=== PATIENT | male | born 1945 | race African-American/Black ===

== ENCOUNTER 2017-03-14 12:27 | Emergency (ER) | payer OTHER, MEDICAID ==
[~2017-03-14] VITALS: Ht 182.9 cm; Wt 86.0 kg
[2017-03-14 12:49] VITALS: BP 115/81
== END 2017-03-14 19:57 | disposition left against medical advice (07) ==
LOC: ER 12:27
DX: L60.0 Ingrowing nail (principal); Z53.21 Procedure and treatment not carried out due to patient leaving prior to being seen by health care provider

== ENCOUNTER 2017-09-28 12:15 | Emergency (ER) | payer OTHER, MEDICAID ==
[~2017-09-28] VITALS: Ht 182.9 cm; Wt 85.0 kg
[2017-09-28 13:14] VITALS: BP 142/97
[2017-09-28] MEDS ORDERED: POVIDONE-IODINE 10% TOPICAL SOLN 240ML TOP ONE (13:15)
[2017-09-28] MEDS ORDERED: LIDOCAINE HCL 1% 20ML VIAL (Pyxis) INJ INFIL ONE (13:15)
[2017-09-28] MEDS ORDERED: TETANUS, DIPHTHERIA, PERTUSSIS VAC/PF 0.5ML (>7YR OLD) IM ONE (13:15)
== END 2017-09-28 15:15 | disposition home or self-care (01) ==
LOC: ER 14:41
DX: S61.411A Laceration without foreign body of right hand, initial encounter (principal); I10 Essential (primary) hypertension; Y08.89XA Assault by other specified means, initial encounter; Y93.89 Activity, other specified; Y92.89 Other specified places as the place of occurrence of the external cause; Y99.8 Other external cause status
CPT/HCPCS: 90471; 90715; 99283; A4246; J3490

== ENCOUNTER 2017-09-30 09:43 | Emergency (ER) | payer OTHER, MEDICAID ==
[~2017-09-30] VITALS: Ht 182.9 cm; Wt 86.0 kg
[2017-09-30 09:45] VITALS: BP 119/86
== END 2017-09-30 12:25 | disposition home or self-care (01) ==
LOC: ER 09:45
DX: Z48.00 Encounter for change or removal of nonsurgical wound dressing (principal); I10 Essential (primary) hypertension
CPT/HCPCS: 99281

== ENCOUNTER 2017-12-20 03:19 | Emergency (ER) | payer MEDICARE, MEDICAID ==
[~2017-12-20] VITALS: Ht 185.4 cm; Wt 84.0 kg
[2017-12-20] MEDS ORDERED: IBUPROFEN 400MG TABLET PO ONE (05:30)
[2017-12-20] MEDS ORDERED: ACETAMINOPHEN 325MG TABLET PO ONE (05:30)
[2017-12-20 08:51] VITALS: BP 124/79
== END 2017-12-20 08:57 | disposition home or self-care (01) ==
LOC: ER 04:13
DX: S52.121A Displaced fracture of head of right radius, initial encounter for closed fracture (principal); J45.909 Unspecified asthma, uncomplicated; W19.XXXA Unspecified fall, initial encounter; Y92.9 Unspecified place or not applicable
CPT/HCPCS: 73080; 73110; 99284

== ENCOUNTER 2018-09-14 05:07 | Emergency (ER) | payer MEDICARE, MEDICAID ==
[~2018-09-14] VITALS: Ht 185.4 cm; Wt 84.0 kg
[2018-09-14 05:09] VITALS: BP 128/81
== END 2018-09-14 07:30 | disposition home or self-care (01) ==
LOC: ER 07:03
DX: S61.233A Puncture wound without foreign body of left middle finger without damage to nail, initial encounter (principal); L03.012 Cellulitis of left finger; J45.909 Unspecified asthma, uncomplicated; X58.XXXA Exposure to other specified factors, initial encounter; Y93.89 Activity, other specified; Y92.89 Other specified places as the place of occurrence of the external cause; Y99.8 Other external cause status
CPT/HCPCS: 99283

== ENCOUNTER 2018-09-16 04:55 | Emergency (ER) | payer MEDICARE, MEDICAID ==
[~2018-09-16] VITALS: Ht 185.4 cm; Wt 84.0 kg
[2018-09-16 05:16] VITALS: BP 135/88
[2018-09-16] MEDS ORDERED: LIDOCAINE HCL 1% 20ML VIAL (Pyxis) INJ INFIL ONE (09:00)
[2018-09-16] MEDS ORDERED: BACITRACIN ZINC OINT UDPKT TOP ONE (10:30)
== END 2018-09-16 10:46 | disposition home or self-care (01) ==
LOC: ER 10:38
DX: L02.512 Cutaneous abscess of left hand (principal); J45.909 Unspecified asthma, uncomplicated
CPT/HCPCS: 10060; 73130; 99283; J3490

== ENCOUNTER 2018-11-02 17:22 | Inpatient (IN) | payer MEDICARE, MEDICAID ==
[~2018-11-02] VITALS: Ht 185.4 cm; Wt 85.7 kg
[2018-11-02] MEDS ORDERED: SODIUM CHLORIDE 0.9% 1,000 ML IV ONE (20:27)
[2018-11-02] MEDS ORDERED: ONDANSETRON HCL 4MG/2ML INJ IV STA (20:27)
[2018-11-02] MEDS ORDERED: MAGNESIUM/ALUMINUM HYDROXIDE/SIMETHICONE 30ML UDC PO STA (20:27)
[2018-11-02 22:05] LABS: BASOPHILS % 0.5 % (0.0-2.0); EOSINOPHILS % 0.2 % (0.0-5.0); HEMATOCRIT. 44.5 % (42.0-52.0); HEMOGLOBIN. 14.8 g/dL (14.0-18.0); LYMPHOCYTES % 26.3 % (20.0-50.0); MEAN CORPUSCULAR HEMOGLOBIN 30.1 pg (28.0-32.0); MEAN CORPUSCULAR VOLUME 90.6 fL (80.0-94.0); MEAN PLATELET VOLUME 7.9 fl (7.4-10.4); MONOCYTES % 8.1 % (2.0-8.0); NEUTROPHILS % 64.9 % (40.0-76.0); PLATELET 260 x1000/uL (130-400); RED BLOOD CELL COUNT 4.91 mill/uL (4.7-6.1); RED CELL DISTRIBUTION WIDTH 13.7 % (11.6-14.6)
[2018-11-02 22:11] LABS: INR 1.1; PROTHROMBIN TIME 10.9 sec (9.1-11.1)
[2018-11-02 23:26] LABS: CHLORIDE 108 mEq/L (98-107)
[2018-11-03] MEDS ORDERED: ASPIRIN 325MG EC TABLET PO SCH
[2018-11-03 03:12] VITALS: BP 154/94
[2018-11-03] MEDS ORDERED: ENOXAPARIN 80MG/0.8ML SYR SUBCUT SCH (03:45)
[2018-11-03 04:00] VITALS: BP 154/94
[2018-11-03] MEDS ORDERED: ONDANSETRON HCL 4MG/2ML INJ IV PRN (07:45)
[2018-11-03 08:00] VITALS: BP 127/83
[2018-11-03] MEDS: ASPIRIN 81MG TABLET PO SCH (09:08)
[2018-11-03] MEDS: METOPROLOL TARTRATE 50MG TABLET PO SCH ×2 (09:09→21:00)
[2018-11-03] MEDS: ENOXAPARIN 40MG/0.4ML SYR SUBCUT SCH (09:10)
[2018-11-03] MEDS ORDERED: INFLUENZA VIRUS VACCINE(AFLURIA) 0.5ML SYR IM ONE (12:00)
[2018-11-03 12:10] VITALS: BP 104/73
[2018-11-03 16:00] VITALS: BP 118/78
[2018-11-03 16:45] LABS: CREATINE KINASE MB FRACTION 1.3 ng/mL (0.5-3.6)
[2018-11-03] MEDS ORDERED: IPRATROPIUM/ALBUTEROL 0.5-3(2.5)MG/3ML NEB HHN PRN (18:45)
[2018-11-03] MEDS ORDERED: DIPHENHYDRAMINE 50MG/ML VIAL IV PRN (18:45)
[2018-11-03] MEDS ORDERED: HYDROCODONE/ACETAMINOPHEN 5/325MG TABLET PO PRN (18:45)
[2018-11-03] MEDS ORDERED: MECLIZINE 25MG TABLET PO PRN (18:45)
[2018-11-03 20:00] VITALS: BP_SYST 104; BP_SYST 107; BP_SYST 114; BP_DIAS 82; BP_DIAS 84; BP_DIAS 86
[2018-11-03 23:01] LABS: CLARITY URINE CLEAR (CLEAR); COLOR URINE YELLOW (YELLOW); KETONES URINE NEGATIVE (NEGATIVE); LEUKOCYTE ESTERASE URINE NEGATIVE (NEGATIVE); NITRITE URINE NEGATIVE (NEGATIVE); OCCULT BLOOD URINE NEGATIVE (NEGATIVE); PH URINE 5.5 (4.5-8.0); PROTEIN URINE NEGATIVE (NEGATIVE); SPECIFIC GRAVITY URINE 1.019 (1.005-1.030); UROBILINOGEN URINE 0.2 E.U./dL (0.2-1.0)
[2018-11-04] VITALS: BP_SYST 116; BP_SYST 117; BP_DIAS 75; BP_DIAS 83; BP_DIAS 86
[2018-11-04 00:30] LABS: CREATINE KINASE MB FRACTION 1.4 ng/mL (0.5-3.6)
[2018-11-04 04:00] VITALS: BP_SYST 105; BP_SYST 107; BP_SYST 111; BP_DIAS 69; BP_DIAS 77; BP_DIAS 86
[2018-11-04 07:10] LABS: CHLORIDE 106 mEq/L (98-107)
[2018-11-04 07:11] LABS: HEMATOCRIT 42.2 % (42.0-52.0); HEMOGLOBIN 13.9 g/dL (14.0-18.0); MEAN CORPUSCULAR VOLUME 90.8 fL (80.0-94.0); PLATELET 238 x1000/uL (130-400); RED BLOOD CELL COUNT 4.65 mill/uL (4.7-6.1); RED CELL DISTRIBUTION WIDTH 13.6 % (11.6-14.6)
[2018-11-04 07:22] LABS: CREATINE KINASE 281 IU/L (39-308)
[2018-11-04 07:26] LABS: CREATINE KINASE MB FRACTION < 1.0 ng/mL (0.5-3.6)
[2018-11-04 08:19] VITALS: BP_SYST 104; BP_SYST 95; BP_SYST 99; BP_DIAS 68; BP_DIAS 69; BP_DIAS 77
[2018-11-04] MEDS: ASPIRIN 81MG TABLET PO SCH (08:31)
[2018-11-04] MEDS: METOPROLOL TARTRATE 50MG TABLET PO SCH ×2 (08:32→21:04)
[2018-11-04] MEDS: ENOXAPARIN 40MG/0.4ML SYR SUBCUT SCH (08:32)
[2018-11-04 10:39] LABS: *BARBITURATES SCREEN URINE NEGATIVE (NEGATIVE); *BENZODIAZEPINES SCREEN URINE NEGATIVE (NEGATIVE); *COCAINE SCREEN URINE NEGATIVE (NEGATIVE); CANNABINOID URINE SCREEN NEGATIVE (NEGATIVE); METHADONE URINE SCREEN NEGATIVE (NEGATIVE); OPIATES URINE SCREEN NEGATIVE (NEGATIVE); PHENCYCLIDINE URINE SCREEN NEGATIVE (NEGATIVE)
[2018-11-04 10:40] LABS: *AMPHETAMINES SCREEN URINE NEGATIVE (NEGATIVE)
[2018-11-04 11:45] VITALS: BP 97/63
[2018-11-04 16:00] VITALS: BP 123/78
[2018-11-04 20:00] VITALS: BP_SYST 135; BP_SYST 145; BP_DIAS 85; BP_DIAS 89
[2018-11-05] VITALS: BP 113/71
[2018-11-05 04:00] VITALS: BP 115/72
[2018-11-05 08:00] VITALS: BP_SYST 116; BP_SYST 123; BP_SYST 98; BP_DIAS 71; BP_DIAS 76; BP_DIAS 80
[2018-11-05] MEDS: ENOXAPARIN 40MG/0.4ML SYR SUBCUT SCH (09:56)
[2018-11-05] MEDS: METOPROLOL TARTRATE 50MG TABLET PO SCH ×2 (09:56→20:37)
[2018-11-05] MEDS: ASPIRIN 81MG TABLET PO SCH (09:56)
[2018-11-05 12:00] VITALS: BP 99/68
[2018-11-05] MEDS ORDERED: REGADENOSON 0.4 MG/5 ML IV ONE (13:00)
[2018-11-05 13:26] LABS: HEMATOCRIT 44.9 % (42.0-52.0); HEMOGLOBIN 14.6 g/dL (14.0-18.0); MEAN CORPUSCULAR HEMOGLOBIN 29.8 pg (28.0-32.0); PLATELET 258 x1000/uL (130-400); RED BLOOD CELL COUNT 4.89 mill/uL (4.7-6.1); RED CELL DISTRIBUTION WIDTH 13.5 % (11.6-14.6)
[2018-11-05 13:32] LABS: CHLORIDE 107 mEq/L (98-107)
[2018-11-05] MEDS ORDERED: ACETAMINOPHEN 650MG/20.3ML UDC PO PRN (14:45)
[2018-11-05] MEDS ORDERED: ACETAMINOPHEN 650MG SUPP PR PRN (14:45)
[2018-11-05] MEDS ORDERED: DIPHENHYDRAMINE 50MG/ML VIAL IV PRN (14:45)
[2018-11-05] MEDS ORDERED: CLONIDINE 0.1MG TABLET PO PRN (14:45)
[2018-11-05] MEDS ORDERED: DOCUSATE SODIUM 100MG CAPSULE PO PRN (14:45)
[2018-11-05 16:00] VITALS: BP 112/66
[2018-11-05 20:00] VITALS: BP 113/75
[2018-11-06] VITALS: BP_SYST 116; BP_SYST 118; BP_SYST 129; BP_DIAS 75; BP_DIAS 79; BP_DIAS 80
[2018-11-06] MEDS ORDERED: DEXT 5%/0.45% NACL 1000ML 1,000 ML IV SCH
[2018-11-06 04:00] VITALS: BP 108/72
[2018-11-06 07:40] LABS: BASOPHILS % 0.8 % (0.0-2.0); EOSINOPHILS % 3.6 % (0.0-5.0); HEMATOCRIT. 44.6 % (42.0-52.0); HEMOGLOBIN. 14.8 g/dL (14.0-18.0); MEAN CORPUSCULAR HEMOGLOBIN 30.2 pg (28.0-32.0); MEAN CORPUSCULAR VOLUME 90.9 fL (80.0-94.0); MEAN PLATELET VOLUME 7.6 fl (7.4-10.4); MONOCYTES % 12.4 % (2.0-8.0); NEUTROPHILS % 26.2 % (40.0-76.0); PLATELET 234 x1000/uL (130-400); RED BLOOD CELL COUNT 4.91 mill/uL (4.7-6.1); RED CELL DISTRIBUTION WIDTH 13.8 % (11.6-14.6)
[2018-11-06 07:43] LABS: CHLORIDE 106 mEq/L (98-107)
[2018-11-06 08:00] VITALS: BP 104/74
[2018-11-06] MEDS ORDERED: REGADENOSON 0.4 MG/5 ML IV ONE (08:47)
[2018-11-06] MEDS: METOPROLOL TARTRATE 50MG TABLET PO SCH (09:00)
[2018-11-06] MEDS: ASPIRIN 81MG TABLET PO SCH (10:39)
[2018-11-06] MEDS: ENOXAPARIN 40MG/0.4ML SYR SUBCUT SCH (10:39)
[2018-11-06 12:00] VITALS: BP 115/79
[2018-11-06 16:00] VITALS: BP 134/86
[2018-11-06 16:19] VITALS: BP 134/86
== END 2018-11-06 17:15 | disposition home or self-care (01) | DRG 281 ==
LOC: ER 17:22 → 5WST 11-03 01:39 → ENRESERV 11-03 02:48
PROVIDERS: ADMIT Internal Medicine; ATTEND Internal Medicine
DX: I21.4 Non-ST elevation (NSTEMI) myocardial infarction (principal); M62.82 Rhabdomyolysis; E86.0 Dehydration; I10 Essential (primary) hypertension; I45.10 Unspecified right bundle-branch block; E78.5 Hyperlipidemia, unspecified; J45.909 Unspecified asthma, uncomplicated; M19.90 Unspecified osteoarthritis, unspecified site; R73.9 Hyperglycemia, unspecified; G90.8 Other disorders of autonomic nervous system
CPT/HCPCS: 36415; 71045; 78452; 80048; 80061; 80305; 82550; 82553; 83036; 83735; 84484; 85027; 85379; 90686; 93005; 93017; 93306; 93880; 93970; 96374; 96375; 99285; A9500; J1200; J1650; J2405; J2785; J7030

== ENCOUNTER 2019-02-09 05:56 | Emergency (ER) | payer MEDICARE, MEDICAID ==
[~2019-02-09] VITALS: Ht 182.9 cm; Wt 82.0 kg
[2019-02-09] MEDS ORDERED: MAGNESIUM/ALUMINUM HYDROXIDE/SIMETHICONE 30ML UDC PO STA (06:39)
[2019-02-09 06:52] LABS: BASOPHILS % 1.3 % (0.0-2.0); EOSINOPHILS % 3.4 % (0.0-5.0); HEMATOCRIT. 41.2 % (42.0-52.0); HEMOGLOBIN. 13.4 g/dL (14.0-18.0); LYMPHOCYTES % 48.8 % (20.0-50.0); MEAN CORPUSCULAR VOLUME 91.9 fL (80.0-94.0); MEAN PLATELET VOLUME 7.4 fl (7.4-10.4); MONOCYTES % 11.2 % (2.0-8.0); NEUTROPHILS % 35.3 % (40.0-76.0); PLATELET 189 x1000/uL (130-400); RED BLOOD CELL COUNT 4.49 mill/uL (4.7-6.1); RED CELL DISTRIBUTION WIDTH 13.2 % (11.6-14.6)
[2019-02-09 06:58] LABS: CHLORIDE 107 mEq/L (98-107)
[2019-02-09 07:55] VITALS: BP 125/88
== END 2019-02-09 08:05 | disposition home or self-care (01) ==
LOC: ER 06:52
DX: R10.84 Generalized abdominal pain (principal); J45.909 Unspecified asthma, uncomplicated; E78.00 Pure hypercholesterolemia, unspecified; I10 Essential (primary) hypertension
CPT/HCPCS: 36415; 93005; 99284

== ENCOUNTER 2020-05-22 10:47 | Emergency (ER) | payer MEDICARE, MEDICAID ==
[~2020-05-22] VITALS: Ht 182.9 cm; Wt 81.0 kg
[2020-05-22 10:59] VITALS: BP 140/87
[2020-05-22] MEDS ORDERED: ACETAMINOPHEN 325MG TABLET PO ONE (11:30)
== END 2020-05-22 15:30 | disposition home or self-care (01) ==
LOC: ER 10:47
DX: S82.455A Nondisplaced comminuted fracture of shaft of left fibula, initial encounter for closed fracture (principal); W10.9XXA Fall (on) (from) unspecified stairs and steps, initial encounter; Y93.01 Activity, walking, marching and hiking; Y92.89 Other specified places as the place of occurrence of the external cause; I10 Essential (primary) hypertension; E78.00 Pure hypercholesterolemia, unspecified; J45.909 Unspecified asthma, uncomplicated
CPT/HCPCS: 29515; 73610; 73630; 99284

== ENCOUNTER 2020-12-11 11:12 | Emergency (ER) | payer MEDICARE, MEDICAID ==
[~2020-12-11] VITALS: Ht 185.4 cm; Wt 79.0 kg
[2020-12-11 12:20] LABS: CHLORIDE 108 mEq/L (98-107)
[2020-12-11 12:22] LABS: INR 1.1; PROTHROMBIN TIME 11.4 sec (9.6-11.0)
[2020-12-11 12:23] LABS: EOSINOPHILS % 2.4 % (0.0-5.0); HEMATOCRIT. 43.1 % (42.0-52.0); HEMOGLOBIN. 14.4 g/dL (14.0-18.0); LYMPHOCYTES % 38.8 % (20.0-50.0); MEAN CORPUSCULAR HEMOGLOBIN 29.6 pg (28.0-32.0); MEAN CORPUSCULAR VOLUME 88.7 fL (80.0-94.0); MEAN PLATELET VOLUME 7.6 fl (7.4-10.4); MONOCYTES % 10.6 % (2.0-8.0); NEUTROPHILS % 47.2 % (40.0-76.0); PLATELET 253 x1000/uL (130-400); RED BLOOD CELL COUNT 4.86 mill/uL (4.7-6.1); RED CELL DISTRIBUTION WIDTH 13.5 % (11.6-14.6)
[2020-12-11] MEDS ORDERED: ACETAMINOPHEN 325MG TABLET PO ONE (13:00)
[2020-12-11 13:24] LABS: CLARITY URINE CLEAR (CLEAR); COLOR URINE YELLOW (YELLOW); KETONES URINE TRACE (NEGATIVE); LEUKOCYTE ESTERASE URINE NEGATIVE (NEGATIVE); NITRITE URINE NEGATIVE (NEGATIVE); OCCULT BLOOD URINE NEGATIVE (NEGATIVE); PROTEIN URINE NEGATIVE (NEGATIVE); SPECIFIC GRAVITY URINE 1.024 (1.005-1.030); UROBILINOGEN URINE 0.2 E.U./dL (0.2-1.0)
[2020-12-11 14:35] VITALS: BP 110/72
[2020-12-11] MEDS ORDERED: IOHEXOL-300 100 ML BOTTLE ONE (15:33)
== END 2020-12-11 15:56 | disposition home or self-care (01) ==
LOC: ER 11:12
DX: R10.32 Left lower quadrant pain (principal); I10 Essential (primary) hypertension; J45.909 Unspecified asthma, uncomplicated; E78.00 Pure hypercholesterolemia, unspecified
CPT/HCPCS: 36415; 74177; 80053; 81003; 83690; 85025; 85610; 93005; 99285; Q9967

== ENCOUNTER 2022-01-19 12:41 | Emergency (ER) | payer MEDICARE, MEDICAID ==
[~2022-01-19] VITALS: Ht 182.9 cm; Wt 80.0 kg
[2022-01-19] MEDS ORDERED: ACETAMINOPHEN 500MG TABLET PO ONE (13:15)
[2022-01-19] MEDS ORDERED: ACET-2708 MT (14:26)
[2022-01-19 14:35] VITALS: BP 154/73
== END 2022-01-19 14:36 | disposition home or self-care (01) ==
LOC: ER 12:41
DX: M25.561 Pain in right knee (principal); E78.00 Pure hypercholesterolemia, unspecified; J45.909 Unspecified asthma, uncomplicated; I10 Essential (primary) hypertension
CPT/HCPCS: 73562; 99283

== ENCOUNTER 2023-06-20 14:30 | Emergency (ER) | payer OTHER, MEDICAID ==
[~2023-06-20] VITALS: Ht 185.4 cm; Wt 63.5 kg
[~2023-06-20 14:30] MED LIST: ACET-2708 MT; AMLO5TAB88 PO; LOSA50TA41 PO
[2023-06-20 15:05] VITALS: O2SAT 96
[2023-06-20 18:12] LABS: BASOPHILS % 1.2 % (0.0-2.0); EOSINOPHILS % 4.7 % (0.0-5.0); HEMATOCRIT. 41.1 % (42.0-52.0); HEMOGLOBIN. 13.7 g/dL (14.0-18.0); LYMPHOCYTES % 21.6 % (20.0-50.0); MEAN CORPUSCULAR HEMOGLOBIN 30.3 pg (28.0-32.0); MEAN CORPUSCULAR HGB CONC 33.5 g/dL (31.0-37.0); MEAN CORPUSCULAR VOLUME 90.6 fL (80.0-94.0); MEAN PLATELET VOLUME 6.8 fl (7.4-10.4); MONOCYTES % 10.9 % (2.0-8.0); NEUTROPHILS % 61.6 % (40.0-76.0); PLATELET 452 x1000/uL (130-400); RED BLOOD CELL COUNT 4.53 mill/uL (4.7-6.1); RED CELL DISTRIBUTION WIDTH 13.4 % (11.6-14.6); WHITE BLOOD COUNT 7.3 x1000/uL (4.5-11.0)
[2023-06-20 18:21] LABS: CHLORIDE 103 mEq/L (98-107); INDEX HEMOLYSI 1 (1-3); INDEX ICTERIC 1 (1-4); INDEX LIPEMIC 1 (1-3); POTASSIUM 4.2 mEq/L (3.5-5.1); SODIUM 137 mEq/L (136-145)
[2023-06-20 18:27] LABS: ALANINE AMINOTRANSFERASE 26 IU/L (13-61); ALBUMIN 3.6 g/dL (3.4-5.0); ASPARTATE AMINOTRANSFERASE 13 IU/L (15-37); BILIRUBIN TOTAL 0.4 mg/dL (0.1-1.0); CALCIUM 8.9 mg/dL (8.5-10.1); CARBON DIOXIDE 29 mEq/L (21-32); GLUCOSE 126 mg/dL (70-105); PROTEIN TOTAL 8.6 g/dL (6.0-8.3); UREA NITROGEN BLOOD 16 mg/dL (7-21)
[2023-06-20 18:49] LABS: ERYTHROCYTE SEDIMENTATION RATE 69 mm/hr (0-20)
[2023-06-20] MEDS ORDERED: HYDROCODONE/ACETAMINOPHEN 5/325MG TABLET PO ONE (20:00)
[2023-06-20] MEDS ORDERED: PREDNISONE 20MG TABLET PO ONE (20:00)
[2023-06-20] MEDS ORDERED: PRED10TA MT ×2 (20:37)
[2023-06-20] MEDS ORDERED: P20 MT ×2 (20:37)
[2023-06-20] MEDS ORDERED: P50 MT ×2 (20:37)
[2023-06-20 20:58] VITALS: BP 136/76
[2023-06-20 20:59] VITALS: PULSE 106; RESP 16; TEMP 98.2
== END 2023-06-20 21:02 | disposition home or self-care (01) ==
LOC: ER 14:46
DX: R51.9 Headache, unspecified (principal); J45.909 Unspecified asthma, uncomplicated; E78.00 Pure hypercholesterolemia, unspecified; I10 Essential (primary) hypertension
CPT/HCPCS: 99283; 80053; 86140; 85025; 85651; 36415; J7512

== ENCOUNTER 2023-06-27 14:52 | Emergency (ER) | payer OTHER, MEDICAID ==
[~2023-06-27] VITALS: Ht 175.3 cm; Wt 69.0 kg
[~2023-06-27 14:52] MED LIST changes: +P20 MT
[2023-06-27 15:23] VITALS: BP 114/78; PULSE 103; RESP 18; TEMP 98.4; O2SAT 98
[2023-06-27] MEDS ORDERED: NAPR-1176 MT ×2 (19:56)
[2023-06-27] MEDS ORDERED: KETOROLAC 30MG/ML VIAL IM ONE (20:00)
[2023-06-27] MEDS ORDERED: P20 MT (20:38)
[2023-06-27] MEDS ORDERED: OMEP20CA14 MT (21:19)
== END 2023-06-27 23:27 | disposition home or self-care (01) ==
LOC: ER 14:52
DX: R51.9 Headache, unspecified (principal); J45.909 Unspecified asthma, uncomplicated; E78.00 Pure hypercholesterolemia, unspecified; I10 Essential (primary) hypertension
CPT/HCPCS: 99283